=== PATIENT | male | born 1960 | race Caucasian/White ===

== ENCOUNTER 2018-02-09 13:28 | Emergency (ER) | payer BC ==
--- NOTE | 2018-02-09 16:08 | RADIOLOGY REPORT (SQ) ---
EXAM DESCRIPTION: KNEE LEFT 4 VIEW COMPLETED DATE/TIME: 02/09/2018 3:57 pm REASON FOR STUDY: fall on wednesday increased pain swelling COMPARISON: None. NUMBER OF VIEWS: Four views. TECHNIQUE: AP, lateral, and both oblique radiographic images acquired of the left knee. LIMITATIONS: None. FINDINGS: MINERALIZATION: Normal. BONES: Sclerotic bone lesion anteromedial proximal tibia consistent with bone island. No acute fract ure or bony abnormality seen. JOINT: No effusion. SOFT TISSUES: No soft tissue swelling. No radio-opaque foreign body. OTHER: No other significant finding. IMPRESSION: Normal left knee. TECHNICAL DOCUMENTATION: JOB ID: [id number] [id number] 2010 [email or web address]- All Rights Reserved Reading location - IP/workstation name: [email or web address]
--- NOTE | 2018-02-09 18:21 | RADIOLOGY REPORT (SQ) ---
EXAM DESCRIPTION: CT LT LOWER EXTREMITY WITHOUT COMPLETED DATE/TIME: 02/09/2018 5:22 pm REASON FOR STUDY: left knee injury severe swelling bruising COMPARISON: Earlier same day knee radiographs TECHNIQUE: Axial imaging performed through the left knee with reformatted coronal and sagittal imagi ng windowed for bone and soft tissues. Images saved to PACS. 3D IMAGING: Were 3D images as MIP, SSD, or volume rendering performed at the work station? No. All CT scanners at this facility use dose modulation, iterative reconstruction, and/or weight based d osing when appropriate to reduce radiation dose to as low as reasonably achievable (ALARA). [facility]: Dose Right [facility]: CareDose [facility]: Dose Right [facility]: Teradose 4D [facility]: [employer] LIMITATIONS: None. RADIATION DOSE: CT Rad equipment meets quality standard of care and radiation dose reduction techniq ues were employed. CTDIvol: 4.1 mGy. DLP: 117 mGy-cm. mGy. FINDINGS: SOFT TISSUES: Moderate size hyperattenuating fluid collection within the subcutaneous fat anteriorly beginning superior to the patella and extending inferiorly to the level of the anterior t ibial tubercle. Moderate diffuse subcutaneous edema. Nonspecific calcifications within the subcutan eous fat anterior to the patella. No knee joint effusion. No radiopaque foreign body. No subcutane ous gas. Minimal scattered vascular calcifications. BONES: No acute fracture. No dislocation. Subchondral cystic changes of the patella. Small sclerot ic focus along the anterior proximal tibia, likely representing a bone island. Joint spaces are norm al. No erosions. MINERALIZATION: Normal. OTHER: No other significant finding. IMPRESSION: 1. No acute fracture dislocation of the left knee. 2. Moderate-sized anterior subcutaneous hematoma. Moderate nonspecific subcutaneous edema. TECHNICAL DOCUMENTATION: JOB ID: [id number] Quality ID # [id number]: Final reports with documentation of one or more dose reduction techniques (e.g., Au tomated exposure control, adjustment of the mA and/or kV according to patient size, use of iterative reconstruction technique) 2010 [employer]- All Rights Reserved Reading location - IP/workstation name: [email or web address]
[2018-02-09] MEDS ORDERED: HYDROCODONE/ACETAMINOPHEN 5-325 MG (6 TAB/ER DISP) PO PRN (18:43)
[2018-02-09 18:45] VITALS: BP 145/72
--- NOTE | 2018-02-09 18:50 | ER Document Report ---
ED Extremity Problem, Lower - General Chief Complaint: Knee Pain Stated Complaint: LEFT KNEE INJURY Time Seen by Provider: 02/09/18 14:53 Mode of Arrival: Wheelchair Information source: Patient Notes: 57-year-old male presented to ED for complaint of pain to his left knee. He states he is visiting from [place] and plans to go home on Wednesday. He states he tripped and fell landing on the left knee on Wednesday. He states he has had pain and swelling since then and it has been slowly increased in size and intensity of the pain. He does have a very large tender ecchymotic knee. He states his gave him 600 mg of ibuprofen last night. He states he is not taking anything else for the pain. Patient is alert and oriented respirations regular and unlabored speaking in full sentences and states it is very difficult for him to walk except for to hop and hold onto things. TRAVEL OUTSIDE OF THE [place] IN LAST 30 DAYS: No - HPI Patient complains to provider of: Injury, Pain, Swelling Occurred: Other - Wednesday Where: Indoors - He is visiting from [place] Onset/Duration: Gradual, Persistent, Worse Quality of pain: Pressure, Sharp, Throbbing Severity: Moderate Pain Level: 4 Context: Fell - Tripped and fell landing on his knee Recent injury: Yes Associated symptoms: Painful ambulation Exacerbated by: Hanging down, Movement, Walking Relieved by: Elevation, Ice, Rest - Related Data Allergies/Adverse Reactions: No Known Allergies Allergy (Unverified 02/09/18 13:33) Past Medical History - General Information source: Patient - Social History Smoking Status: Former Smoker Cigarette use (# per day): No Chew tobacco use (# tins/day): No Smoking Education Provided: No Frequency of alcohol use: Occasional Drug Abuse: None Occupation: sprinkler truck driver Lives with: Family Family History: Reviewed & Not Pertinent Patient has suicidal ideation: No Patient has homicidal ideation: No - Past Medical History Cardiac Medical History: Reports: Hx Congestive Heart Failure, Hx Peripheral Vascular Disease Pulmonary Medical History: Reports: None EENT Medical History: Reports: None Neurological Medical History: Reports: None Endocrine Medical History: Reports: Hx Diabetes Mellitus Type 2 Renal/ Medical History: Reports: None GI Medical History: Reports: None Musculoskeletal Medical History: Reports Hx Arthritis, Reports Hx Musculoskeletal Deformity, Reports Hx Musculoskeletal Trauma Skin Medical History: Reports None Psychiatric Medical History: Reports: None Traumatic Medical History: Reports: None Infectious Medical History: Reports: None Surgical Hx: Negative Past Surgical History: Reports: None Review of Systems - Review of Systems Constitutional: No symptoms reported EENT: No symptoms reported Cardiovascular: No symptoms reported Respiratory: No symptoms reported Gastrointestinal: No symptoms reported Genitourinary: No symptoms reported Male Genitourinary: No symptoms reported Musculoskeletal: Joint pain - The very painful from about 3 inches below 2 or 3 inches above the knee. He has full range of motion of the knee but with pain., Joint swelling - Very ecchymotic and swollen Skin: No symptoms reported Hematologic/Lymphatic: No symptoms reported Neurological/Psychological: No symptoms reported -: Yes All other systems reviewed and negative Physical Exam - Vital signs Vitals: Temp Pulse Resp BP Pulse Ox 100.2 F 85 17 144/83 H 96 02/09/18 13:47 02/09/18 13:47 02/09/18 13:47 02/09/18 13:47 02/09/18 13:47 Interpretation: Normal - General General appearance: Appears well, Alert - HEENT Head: Normocephalic, Atraumatic Eyes: Normal Pupils: PERRL - Respiratory Respiratory status: No respiratory distress Chest status: Nontender Breath sounds: Normal Chest palpation: Normal - Cardiovascular Rhythm: Regular Heart sounds: Normal auscultation Murmur: No - Abdominal Inspection: Normal Distension: No distension Bowel sounds: Normal Tenderness: Nontender Organomegaly: No organomegaly - Back Back: Normal, Nontender - Extremities General upper extremity: Normal inspection, Nontender, Normal color, Normal ROM, Normal temperature General lower extremity: Normal temperature. No: Satinder's sign Thigh: Tender, Ecchymosis Knee: Tender, Ecchymosis, Joint effusion, Pain with ROM, Patellar tendon intact, Tender joint line. No: Abrasion, Deformity, Dislocation, Drawer's test instability, Instability, Laceration, Laxity with valgus stress, Laxity with varus stress, Popliteal fossa tender Calf: Tender, Ecchymosis Ankle: Normal, Nontender Foot: Normal, Nontender - Neurological Neuro grossly intact: Yes Cognition: Normal Orientation: AAOx4 [place] Coma Scale Eye Opening: Spontaneous [place] Coma Scale Verbal: Oriented [place] Coma Scale Motor: Obeys Commands [place] Coma Scale Total: 15 Speech: Normal Motor strength normal: LUE, RUE, LLE, RLE Sensory: Normal - Psychological Associated symptoms: Normal affect, Normal mood - Skin Skin Temperature: Warm Skin Moisture: Dry Skin Color: Normal, Ecchymosis Location of irregularity: Other - left knee Irregularity with: Swelling, Tenderness Course - Re-evaluation Re-evalutation: 02/09/18 22:07 Discussed x-ray and CT of the left knee with patient and written report as well as a CD of the results given to patient. Patient was instructed to follow-up with orthopedics in [place] tomorrow and to follow-up with his orthopedic when he returns to [place]. Had ordered a knee immobilizer but the staff stated that her knee immobilizer is not big enough to fit on his knee. Patient states he would not wear it anyway so there was no weight reason to try to put it on. Crutches were provided and patient was instructed on use of crutches. Patient was offered a [place] dispense pack but he stated that that made him short of breath due to anxiety and that he would prefer Ultram because he knows that has worked in the past for his other knee. Patient stated he was probably not going to follow-up with orthopedics even though he was recommended following up he states that he will have his drive home to [place] on Wednesday and he will follow-up with his orthopedics in [place]. He was encouraged to elevate and ice the knee. Patient was given instructions on mild knee exercises. Patient states he would consult with his orthopedic before he did any exercises. Patient was discharged home with instructions for ice elevation exercises and use of crutches. - Vital Signs Vital signs: Temp Pulse Resp BP Pulse Ox 97.6 F 87 18 145/72 H 93 02/09/18 18:45 02/09/18 18:45 02/09/18 18:45 02/09/18 18:45 02/09/18 18:45 - Diagnostic Test Radiology reviewed: Image reviewed, Reports reviewed Discharge - Discharge Clinical Impression: Contusion of left knee Qualifiers: Encounter type: initial encounter Qualified Code(s): S80.02XA - Contusion of left knee, initial encounter Left knee pain Qualifiers: Chronicity: acute Qualified Code(s): M25.562 - Pain in left knee Internal derangement of knee Qualifiers: Laterality: left Qualified Code(s): M23.92 - Unspecified internal derangement of left knee Condition: Stable Disposition: HOME, SELF-CARE Additional Instructions: SUSPECTED INTERNAL KNEE INJURY: The examiner of your injured knee suspects an internal injury to the cartilage or internal ligaments. This must be further investigated by an military technology specialist. The knee should be protected, ice packed, and elevated while awaiting your follow-up exam by the orthopedist. If there is severe swelling, severe pain, or any new symptoms while awaiting your exam, you should call the orthopedist. (If he/she is unavailable, call us or return for re-examination.) Patient is too large for air knee immobilizer so I could not put him in a knee immobilizer. Patient was instructed to call orthopedics in the morning and follow-up with orthopedics if possible tomorrow. USE OF CRUTCHES: The doctor has recommended that you not bear weight at this time. You will need to use crutches. Adjust the crutches so the tops come to about two inches under the armpit while you are standing upright. Use your hands -- not your armpits -- to support your weight. To get into a chair, support yourself with one crutch on the injured side. Hold the chair with the other hand, then lower yourself while putting all your weight on the good leg. Going up stairs is `good leg up, step up, then bring up crutches and bad leg.' Down stairs is `bad leg and crutches down, then bring good leg down.' If you develop numbness or swelling in an arm or hand, you are using the crutches incorrectly. Return if you are having any problems with the crutches. ICE & ELEVATION: Apply ice packs frequently against the painful area. Many different schedules are recommended, such as "20 minutes on, 20 minutes off" or "one hour ice, two hours rest." If you need to work, you may need to go longer between ice treatments. You should plan to have the area ice packed AT LEAST one-fourth of the time. The ice should be applied over the wrap, tape, or splint, or over a layer of cloth -- not directly against the skin. Some ice bags have a built-in cloth and can be put directly on the skin. Your injured part should be elevated as much as possible over the next 48 hours. Try to keep the injury above the level of the heart. Avoid use of the injured area. Elevation and rest will decrease the swelling. USE OF ALHT-LUM-CXMLAOQ IBUPROFEN: Ibuprofen (Advil, Nuprin, Medipren, Motrin IB) is a medication for fever and pain control. In addition, it has anti- inflammatory effects which may be beneficial, especially in the treatment of injuries. It's best to take ibuprofen with food. Persons with ulcer disease or allergy to aspirin should notify their physician of this before taking ibuprofen. Ibuprofen can be given every four to six hours, for a total of four doses daily. Age Pain or fever dose Antiinflammatory dose 6-8 yr 200 mg (1 tab) 200 mg (1 tab) 9-11 yr 200 mg (1 tab) 200-400 mg (1-2 tab) 11-14 yr 200-400 mg (1-2 tab) 400 mg (2 tab) 15-adult 400 mg (2 tab) 600 mg (3 tab) Ultram Ultram is an excellent drug for pain relief. It is not a narcotic, but it works in a similar way. Ultram can take up to two hours for full effect. Although not addicting, Ultram is best avoided in patients with a history of drug abuse. Ultram should not be used with alcohol, sleeping pills, or narcotics. If you're prone to seizures, Ultram can make you more likely to have a seizure. Ultram can be hazardous when combined with MAO-inhibitor antidepressants (such as Nardil or Parnate). Be sure your doctor is aware of all medicines you are taking. Persons with severe liver or kidney disease should increase the time between doses of Ultram. Discuss this with your doctor if you're uncertain. Side effects of Ultram can include dizziness, nausea, constipation, sleepiness, and itching. (These side effects are also seen with narcotic pain medicines.) Please call your doctor if you have other disturbing effects. ED of the x-ray and CT given the patient to follow-up with orthopedics when he returns home to [place] FOLLOW-UP CARE: If you have been referred to a physician for follow-up care, call the physicians office for an appointment as you were instructed or within the next two days. If you experience worsening or a significant change in your symptoms, notify the physician immediately or return to the Emergency Department at any time for re-evaluation. Prescriptions: Tramadol HCl [Ultram] 50 mg PO BIDP PRN #10 tablet PRN Reason: For Pain Scale 3-5 Forms: Elevated Blood Pressure Referrals: [facility] [Provider Group] - Follow up as needed
== END 2018-02-09 19:07 | disposition home or self-care (01) ==
LOC: ER 13:28
DX: S80.02XA Contusion of left knee, initial encounter (principal); M25.562 Pain in left knee; W01.0XXA Fall on same level from slipping, tripping and stumbling without subsequent striking against object, initial encounter; Z87.891 Personal history of nicotine dependence
CPT/HCPCS: 99284